=== PATIENT | male | born 1980 | race Caucasian/White ===

== ENCOUNTER 2021-11-22 02:13 | Emergency (ER) | payer OTHER ==
[~2021-11-22] VITALS: Ht 165.1 cm; Wt 83.3 kg
[2021-11-22 05:07] LABS: CLARITY URINE CLEAR (CLEAR); COLOR URINE YELLOW (YELLOW); KETONES URINE NEGATIVE (NEGATIVE); LEUKOCYTE ESTERASE URINE NEGATIVE (NEGATIVE); NITRITE URINE NEGATIVE (NEGATIVE); OCCULT BLOOD URINE NEGATIVE (NEGATIVE); PH URINE 5.5 (4.5-8.0); PROTEIN URINE NEGATIVE (NEGATIVE); SPECIFIC GRAVITY URINE 1.035 (1.005-1.030); UROBILINOGEN URINE 0.2 E.U./dL (0.2-1.0)
[2021-11-22] MEDS ORDERED: BO1 TP (05:29)
[2021-11-22] MEDS ORDERED: CLOT24CR TP (05:44)
[2021-11-22] MEDS ORDERED: DOXY100C5 MT (05:44)
[2021-11-22] MEDS ORDERED: CEFTRIAXONE SODIUM 1 G/VIAL IM ONE (05:45)
[2021-11-22 06:06] VITALS: BP 108/78
[2021-11-23 01:16] LABS: *AMPHETAMINES SCREEN URINE PRESUMTIVE POSITIVE (NEGATIVE); *BARBITURATES SCREEN URINE NEGATIVE (NEGATIVE); *BENZODIAZEPINES SCREEN URINE NEGATIVE (NEGATIVE); *COCAINE SCREEN URINE NEGATIVE (NEGATIVE); CANNABINOID URINE SCREEN PRESUMTIVE POSITIVE (NEGATIVE); METHADONE URINE SCREEN NEGATIVE (NEGATIVE); OPIATES URINE SCREEN NEGATIVE (NEGATIVE); PHENCYCLIDINE URINE SCREEN NEGATIVE (NEGATIVE)
[2021-11-23 09:08] LABS: HIV SCREEN 4G Non Reactive (Non Reactive)
== END 2021-11-22 06:00 | disposition home or self-care (01) ==
LOC: ER 02:13 → EDBD 02:13 → ER 06:00
DX: Z11.3 Encounter for screening for infections with a predominantly sexual mode of transmission (principal)
CPT/HCPCS: 80305; 81003; 86592; 86694; 86695; 86696; 87389; 96372; 99283; J0696